=== PATIENT | female | born 1970 | race Caucasian/White ===

== ENCOUNTER 2023-03-07 01:38 | Emergency (ER) | payer BC ==
[2023-03-07] MEDS ORDERED: Sodium Chloride 0.9% 1000 ML 1,000 ML IV STA ×2 (01:41→03:50)
--- NOTE | 2023-03-07 01:54 | ERPHSYRPT ---
- History of Present Illness Time Seen by Provider: 03/07/23 01:45 Source: patient, EMS Exam Limitations: no limitations Physician History: Pt walked outside and had syncopal episode, then was found to have LBP on scene by EMS, which has responded to bolus of fluids. Pt reported that her BP had been high earlier so she took additional meds this afternoon. Pt has not had cardiac or prior hx of this. No hx of trauma and no current pain or symptoms. Full ROM all ext without pain. Chest clear Ht reg without M. Abd soft and nontender without mass or peritoneal signs. Neuro exam normal, mental status normal no suicidal or homicidal ideations. Pt states that she had some alcohol drinks this pm prior to her syncope. discussed risks/benefits of testing CBC, CMP, Lactate, EKG, Trop, Ua, Urine triage, HCG, Acetomenophen, Etoh, and delfina levels and she wishes to proceed. Later results discussed with pt. EMS served as independent source to confirm Hx. Witnessed: by friend Prior Episodes: single episode today Timing/Duration: today, resolved prior to arrival Precipitating Factors: unknown Context: standing Loss of Consciousness: brief (seconds) Charcter of event(s): became unresponsive Allergies/Adverse Reactions: Penicillins Allergy (Verified 03/07/23 04:18) Hives Home Medications: hydroCHLOROthiazide [Hydrochlorothiazide] 12.5 mg PO DAILY 03/07/23 [History] - Past Medical History Pertinent Past Medical History: Yes Neurological History: No Pertinent History ENT History: No Pertinent History Cardiac History: Hypertension Respiratory History: No Pertinent History Endocrine Medical History: No Pertinent History Musculoskeletal History: Arthritis, Osteoarthritis GI Medical History: No Pertinent History History: No Pertinent History Psycho-Social History: Depression - Past Surgical History Past Surgical History: No - Review of Systems Constitutional: No Fever, No Chills Eyes: No Symptoms Ears, Nose, & Throat: No Symptoms Respiratory: No Cough, No Dyspnea Cardiac: No Chest Pain, No Edema, No Syncope Abdominal/Gastrointestinal: No Abdominal Pain, No Nausea, No Vomiting, No Diarrhea Genitourinary Symptoms: No Dysuria Musculoskeletal: No Back Pain, No Neck Pain Skin: No Rash Neurological: Other (resolved syncopal episode), No Dizziness, No Focal Weakness, No Sensory Changes Psychological: No Symptoms Endocrine: No Symptoms Hematologic/Lymphatic: No Symptoms Immunological/Allergic: No Symptoms All Other Systems: Reviewed and Negative Physical Exam - Nursing Vital Signs Nursing Vital Signs: Initial Vital Signs Temperature 97.7 F 03/07/23 01:40 Pulse Rate 83 03/07/23 01:40 Respiratory Rate 16 03/07/23 01:40 Blood Pressure 81/53 03/07/23 01:40 O2 Sat by Pulse Oximetry 100 03/07/23 01:40 Pain Scale Pain Intensity 0 - [place] Coma Scale Best Eye Response ([place]): (4) open spontaneously Best Verbal Response ([place]): (5) oriented Best Motor Response ([place]): (6) obeys commands [place] Total: 15 - Physical Exam General Appearance: no apparent distress, alert Eye Exam: bilateral eye: normal inspection, PERRL, EOMI Ears, Nose, Throat Exam: normal ENT inspection, pharynx normal, moist mucous membranes Neck Exam: normal inspection, non-tender, supple, full range of motion Respiratory: normal breath sounds, lungs clear, No chest tenderness, No respiratory distress Cardiovascular: regular rate/rhythm, capillary refill <2 sec, No murmur, No pulse deficit Gastrointestinal: soft, No tenderness, No distention, No mass Pelvic Exam: deferred Rectal Exam: deferred Back Exam: normal inspection, normal range of motion, No CVA tenderness, No vertebral tenderness Extremity Exam: normal inspection, normal range of motion, pelvis stable, No tenderness Peripheral Pulses: carotid (R): 2+, carotid (L): 2+, femoral (R): 2+, femoral (L): 2+, dorsalis-pedis (R): 2+, dorsalis-pedis (L): 2+ Mental Status: alert, 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 x 3, 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 Exam: normal speech, PERRL, No facial droop Coordination/Gait: normal finger to nose Motor/Sensory: no motor deficit, no sensory deficit, no pronator drift DTR: bicep (R): 2+, bicep (L): 2+, tricep (R): 2+, tricep (L): 2+, knee (R): 2+, knee (L): 2+, ankle (R): 2+, ankle (L): 2+ Skin Exam: normal color, warm, dry, No rash SpO2 Interpretation: normal SpO2: 100 O2 Delivery: Room Air - Course Nursing assessment & vital signs reviewed: Yes EKG Interpreted by Me: Sinus Rhythm, NORMAL AXIS, NORMAL INTERVALS, NORMAL QRS, NORMAL ST-T Ordered Tests: Active Orders 24 hr Category Date Time Status Clean Catch Urine Specimen STAT Care 03/07/23 01:41 Active EKG-ER Only STAT Care 03/07/23 01:41 Active IV Insertion STAT Care 03/07/23 01:41 Active Telemetry q4h Care 03/07/23 02:23 Active Telemetry q4h Care 03/07/23 04:47 Active ACETAMINOPHEN Stat Lab 03/07/23 02:04 Completed CBC W DIFF Stat Lab 03/07/23 02:04 Completed CMP Stat Lab 03/07/23 02:04 Completed D-DIMER QUANTITATIVE Stat Lab 03/07/23 02:00 Completed ETHYL ALCOHOL Stat Lab 03/07/23 02:00 Completed HCG QUALITATIVE, SERUM Stat Lab 03/07/23 02:04 Completed K [Potassium] Stat Lab 03/07/23 05:01 Completed Lactic Acid Stat Lab 03/07/23 02:30 Completed Lactic Acid Stat Lab 03/07/23 04:33 Completed SALICYLATE Stat Lab 03/07/23 02:04 Completed TROPONIN Q4H Lab 03/07/23 02:04 Completed TROPONIN Q4H Lab 03/07/23 05:01 Completed TROPONIN Q4H Lab 03/07/23 09:45 Ordered UA W/RFX UR CULTURE Stat Lab 03/07/23 Ordered Urine Triage Profile Stat Lab 03/07/23 Ordered Medication Summary Generic Name Dose Route Start Last Admin Trade Name Freq PRN Reason Stop Dose Admin Potassium Chloride 20 meq in 100 mls @ 50 mls/hr 03/07/23 04:46 03/07/23 05:04 Potassium Chloride 20 Meq In Water 100ml IV 03/07/23 06:45 50 mls/hr STAT ONE Administration Discontinued Medications Generic Name Dose Route Start Last Admin Trade Name Freq PRN Reason Stop Dose Admin Sodium Chloride 1,000 mls @ 999 mls/hr 03/07/23 01:41 03/07/23 03:15 Sodium Chloride 0.9% 1000 Ml IV 03/07/23 02:41 Infused .Q1H1M STA Infusion Sodium Chloride Confirm 03/07/23 02:14 Sodium Chloride 0.9% 1000 Ml Administered 03/07/23 02:15 Dose 1,000 mls @ ud .ROUTE .STK-MED ONE Potassium Chloride 20 meq in 100 mls @ 50 mls/hr 03/07/23 02:23 03/07/23 02:29 Potassium Chloride 20 Meq In Water 100ml IV 03/07/23 04:22 50 mls/hr STAT ONE Administration Potassium Chloride Confirm 03/07/23 02:27 Potassium Chloride 20 Meq In Water 100ml Administered 03/07/23 02:28 Dose 100 mls @ ud IV .STK-MED ONE Sodium Chloride Confirm 03/07/23 03:27 Sodium Chloride 0.9% 1000 Ml Administered 03/07/23 03:28 Dose 1,000 mls @ ud .ROUTE .STK-MED ONE Sodium Chloride 1,000 mls @ 999 mls/hr 03/07/23 03:50 03/07/23 04:19 Sodium Chloride 0.9% 1000 Ml IV 03/07/23 04:50 999 mls/hr .Q1H1M STA Administration Sodium Chloride Confirm 03/07/23 04:19 Sodium Chloride 0.9% 1000 Ml Administered 03/07/23 04:20 Dose 1,000 mls @ ud .ROUTE .STK-MED ONE Potassium Chloride Confirm 03/07/23 04:56 Potassium Chloride 20 Meq In Water 100ml Administered 03/07/23 04:57 Dose 100 mls @ ud IV .STK-MED ONE Potassium Bicarbonate 25 meq 03/07/23 02:23 03/07/23 02:29 Potassium Bicarbonate 25 Meq Tab PO 03/07/23 02:24 25 meq STAT ONE Administration Potassium Bicarbonate Confirm 03/07/23 02:27 Potassium Bicarbonate 25 Meq Tab Administered 03/07/23 02:28 Dose 25 meq .ROUTE .STK-MED ONE Lab/Rad Data: Laboratory Result Diagrams 03/07/23 02:04 03/07/23 05:01 Laboratory Results 03/07/23 03/07/23 03/07/23 Range/Units 05:01 05:01 04:33 WBC (4.0-10.5) x10^3/uL RBC (4.1-5.4) x10^6/uL Hgb (12.0-16.0) g/dL Hct (35-47) % MCV (78-100) fL MCH (26-32) pg MCHC (32-36) g/dL RDW (11.5-14.0) % Plt Count (150-450) x10^3/uL MPV (7.5-11.0) fL Gran % (36.0-66.0) % Immature Gran % (Auto) (0.00-0.4) % Nucleat RBC Rel Count (0.00-0.1) % Eos # (Auto) (0-0.5) x10^3/uL Immature Gran # (Auto) (0.00-0.03) x10^3u/L Absolute Lymphs (auto) (1.0-4.6) x10^3/uL Absolute Monos (auto) (0.0-1.3) x10^3/uL Absolute Nucleated RBC (0.00-0.01) x10^3u/L Lymphocytes % (24.0-44.0) % Monocytes % (0.0-12.0) % Eosinophils % (0.00-5.0) % Basophils % (0.0-0.4) % Absolute Granulocytes (1.4-6.9) x10^3/uL Basophils # (0-0.4) x10^3/uL D-Dimer (0.0-0.50) mg/L Sodium (137-145) mmol/L Potassium 3.1 L (3.5-5.1) mmol/L Chloride (98-107) mmol/L Carbon Dioxide (22-30) mmol/L Anion Gap (5-15) MEQ/L BUN (7-17) mg/dL Creatinine (0.52-1.04) mg/dL Estimated GFR ML/MIN Glucose (74-106) mg/dL Lactic Acid 3.5 H (0.4-2.0) Calcium (8.4-10.2) mg/dL Total Bilirubin (0.2-1.3) mg/dL AST (14-36) U/L ALT (0-35) U/L Alkaline Phosphatase (38-126) U/L Troponin I < 0.012 (0.000-0.034) ng/mL Serum Total Protein (6.3-8.2) g/dL Albumin (3.5-5.0) g/dL Serum HCG, Qual (NEGATIVE) Salicylates (2-20) mg/dL Acetaminophen (10-30) ug/ml Ethyl Alcohol (0-10) mg/dL 03/07/23 03/07/23 03/07/23 Range/Units 02:30 02:04 02:04 WBC (4.0-10.5) x10^3/uL RBC (4.1-5.4) x10^6/uL Hgb (12.0-16.0) g/dL Hct (35-47) % MCV (78-100) fL MCH (26-32) pg MCHC (32-36) g/dL RDW (11.5-14.0) % Plt Count (150-450) x10^3/uL MPV (7.5-11.0) fL Gran % (36.0-66.0) % Immature Gran % (Auto) (0.00-0.4) % Nucleat RBC Rel Count (0.00-0.1) % Eos # (Auto) (0-0.5) x10^3/uL Immature Gran # (Auto) (0.00-0.03) x10^3u/L Absolute Lymphs (auto) (1.0-4.6) x10^3/uL Absolute Monos (auto) (0.0-1.3) x10^3/uL Absolute Nucleated RBC (0.00-0.01) x10^3u/L Lymphocytes % (24.0-44.0) % Monocytes % (0.0-12.0) % Eosinophils % (0.00-5.0) % Basophils % (0.0-0.4) % Absolute Granulocytes (1.4-6.9) x10^3/uL Basophils # (0-0.4) x10^3/uL D-Dimer (0.0-0.50) mg/L Sodium (137-145) mmol/L Potassium (3.5-5.1) mmol/L Chloride (98-107) mmol/L Carbon Dioxide (22-30) mmol/L Anion Gap (5-15) MEQ/L BUN (7-17) mg/dL Creatinine (0.52-1.04) mg/dL Estimated GFR ML/MIN Glucose (74-106) mg/dL Lactic Acid 4.3 H (0.4-2.0) Calcium (8.4-10.2) mg/dL Total Bilirubin (0.2-1.3) mg/dL AST (14-36) U/L ALT (0-35) U/L Alkaline Phosphatase (38-126) U/L Troponin I (0.000-0.034) ng/mL Serum Total Protein (6.3-8.2) g/dL Albumin (3.5-5.0) g/dL Serum HCG, Qual (NEGATIVE) Salicylates < 1.0 L (2-20) mg/dL Acetaminophen < 10 L (10-30) ug/ml Ethyl Alcohol (0-10) mg/dL 03/07/23 03/07/23 03/07/23 Range/Units 02:04 02:04 02:04 WBC (4.0-10.5) x10^3/uL RBC (4.1-5.4) x10^6/uL Hgb (12.0-16.0) g/dL Hct (35-47) % MCV (78-100) fL MCH (26-32) pg MCHC (32-36) g/dL RDW (11.5-14.0) % Plt Count (150-450) x10^3/uL MPV (7.5-11.0) fL Gran % (36.0-66.0) % Immature Gran % (Auto) (0.00-0.4) % Nucleat RBC Rel Count (0.00-0.1) % Eos # (Auto) (0-0.5) x10^3/uL Immature Gran # (Auto) (0.00-0.03) x10^3u/L Absolute Lymphs (auto) (1.0-4.6) x10^3/uL Absolute Monos (auto) (0.0-1.3) x10^3/uL Absolute Nucleated RBC (0.00-0.01) x10^3u/L Lymphocytes % (24.0-44.0) % Monocytes % (0.0-12.0) % Eosinophils % (0.00-5.0) % Basophils % (0.0-0.4) % Absolute Granulocytes (1.4-6.9) x10^3/uL Basophils # (0-0.4) x10^3/uL D-Dimer (0.0-0.50) mg/L Sodium 136 L (137-145) mmol/L Potassium 2.6 L* (3.5-5.1) mmol/L Chloride 101 (98-107) mmol/L Carbon Dioxide 20 L (22-30) mmol/L Anion Gap 18.0 H (5-15) MEQ/L BUN 12 (7-17) mg/dL Creatinine 0.80 (0.52-1.04) mg/dL Estimated GFR > 60.0 ML/MIN Glucose 104 (74-106) mg/dL Lactic Acid (0.4-2.0) Calcium 7.9 L (8.4-10.2) mg/dL Total Bilirubin 0.50 (0.2-1.3) mg/dL AST 23 (14-36) U/L ALT 25 (0-35) U/L Alkaline Phosphatase 45 (38-126) U/L Troponin I < 0.012 (0.000-0.034) ng/mL Serum Total Protein 6.5 (6.3-8.2) g/dL Albumin 3.8 (3.5-5.0) g/dL Serum HCG, Qual NEGATIVE (NEGATIVE) Salicylates (2-20) mg/dL Acetaminophen (10-30) ug/ml Ethyl Alcohol (0-10) mg/dL 03/07/23 03/07/23 03/07/23 Range/Units 02:04 02:00 02:00 WBC 5.3 (4.0-10.5) x10^3/uL RBC 3.36 L (4.1-5.4) x10^6/uL Hgb 11.3 L (12.0-16.0) g/dL Hct 33.9 L (35-47) % MCV 100.9 H (78-100) fL MCH 33.6 H (26-32) pg MCHC 33.3 (32-36) g/dL RDW 13.9 (11.5-14.0) % Plt Count 271 (150-450) x10^3/uL MPV 8.7 (7.5-11.0) fL Gran % 39.4 (36.0-66.0) % Immature Gran % (Auto) 0.6 H (0.00-0.4) % Nucleat RBC Rel Count 0.0 (0.00-0.1) % Eos # (Auto) 0.02 (0-0.5) x10^3/uL Immature Gran # (Auto) 0.03 (0.00-0.03) x10^3u/L Absolute Lymphs (auto) 2.40 (1.0-4.6) x10^3/uL Absolute Monos (auto) 0.73 (0.0-1.3) x10^3/uL Absolute Nucleated RBC 0.00 (0.00-0.01) x10^3u/L Lymphocytes % 45.1 H (24.0-44.0) % Monocytes % 13.7 H (0.0-12.0) % Eosinophils % 0.4 (0.00-5.0) % Basophils % 0.8 (0.0-0.4) % Absolute Granulocytes 2.10 (1.4-6.9) x10^3/uL Basophils # 0.04 (0-0.4) x10^3/uL D-Dimer < 0.19 (0.0-0.50) mg/L Sodium (137-145) mmol/L Potassium (3.5-5.1) mmol/L Chloride (98-107) mmol/L Carbon Dioxide (22-30) mmol/L Anion Gap (5-15) MEQ/L BUN (7-17) mg/dL Creatinine (0.52-1.04) mg/dL Estimated GFR ML/MIN Glucose (74-106) mg/dL Lactic Acid (0.4-2.0) Calcium (8.4-10.2) mg/dL Total Bilirubin (0.2-1.3) mg/dL AST (14-36) U/L ALT (0-35) U/L Alkaline Phosphatase (38-126) U/L Troponin I (0.000-0.034) ng/mL Serum Total Protein (6.3-8.2) g/dL Albumin (3.5-5.0) g/dL Serum HCG, Qual (NEGATIVE) Salicylates (2-20) mg/dL Acetaminophen (10-30) ug/ml Ethyl Alcohol 111 H (0-10) mg/dL - Progress Progress: improved, re-examined Progress Note: 07/02/23 02:28 pt advised of low K and she agrees to Tx with [place] and Kateryna diaz after discussion of risks/benefits. 03/07/23 06:12 pt has not had any recurrence of symptoms and her blood pressure is now near where her normal is in the 90s systolic. I discussed with the pt and family the limitations of the testing / evaluation performed tonight in this setting and that even though it appears that overmedication combined with dehydration and low potassium with some etoh on board are likely contributors, we cannot be sure of the exact cause of her syncopal episode. They understand and wish to choose outpt f/u with PMD rather than further testing in ER or hosp obs /admission at this time and with normal mental status have the decisional capacity to make that choice. Counseled pt/family regarding: lab results, diagnosis, need for follow-up Medical Desision Making - Independent Historian Additional History obtained from: Mri Supervisor/EMT - Diagnostic Testing Diagnostic test were ordered, analyzed, and reviewed by me: Yes - Risk of complications The pt has a mod risk of morbidity or mortality based on: Need for prescription drug management The pt has a high risk of morbidity or mortality based on: Decision regarding hospitilization or escalation of hosp level of care - Departure Departure Disposition: Home Clinical Impression: resolved syncopal episode, Hypokalemia, overmedication Condition: Good Critical Care Time: No Instructions: Syncope (Fainting) (DC), Hypokalemia (DC), Dehydration, Adult (DC) Additional Instructions: Although there are factors such as dehydration and too much blood pressure medicine that likely played a role in your fainting spell, we cannot be certain that additional conditions may still be developing or present, so that following up with your DrDiamante to consider further work up, and adjustment of your medications is advised as well as rechecking the low potassium and high lactate level. Drink plenty of fluids and take your potassium and eat foods with potassium such as bananas. Return meantime if any further symptoms or concerns.
[2023-03-07 02:09] LABS: BASOPHIL % 0.8 % (0.0-0.4); Basophil (Absolute #) 0.04 x10^3/uL (0-0.4); Eosinophil % 0.4 % (0.00-5.0); Eosinophil (Absolute #) 0.02 x10^3/uL (0-0.5); Hematocrit 33.9 % (35-47); Hemoglobin 11.3 g/dL (12.0-16.0); IMMATURE GRAN # 0.03 x10^3u/L (0.00-0.03); IMMATURE GRAN % 0.6 % (0.00-0.4); Lymphocytes % 45.1 % (24.0-44.0); Mean Cell Volume 100.9 fL (78-100); Mean Corpuscular Hemoglobin 33.6 pg (26-32); Mean Corpuscular Hgb Concent. 33.3 g/dL (32-36); Mean Platelet Volume 8.7 fL (7.5-11.0); Monocyte (Absolute #) 0.73 x10^3/uL (0.0-1.3); Monocytes % 13.7 % (0.0-12.0); Neutrophil % 39.4 % (36.0-66.0); Platelet Count 271 x10^3/uL (150-450); Red Blood Count 3.36 x10^6/uL (4.1-5.4); Red Cell Distribution Width 13.9 % (11.5-14.0); White Blood Count 5.3 x10^3/uL (4.0-10.5)
[2023-03-07] MEDS ORDERED: Sodium Chloride 0.9% 1000 ML 1,000 ML ONE ×3 (02:14→04:19)
[2023-03-07 02:19] LABS: ALBUMIN 3.8 g/dL (3.5-5.0); ALKALINE PHOSPHATASE 45 U/L (38-126); BLOOD UREA NITROGEN 12 mg/dL (7-17); CHLORIDE 101 mmol/L (98-107); Calcium 7.9 mg/dL (8.4-10.2); Carbon Dioxide 20 mmol/L (22-30); EST GLOMERULAR FILTRATION RATE > 60.0 ML/MIN; Glucose 104 mg/dL (74-106); SGOT/AST 23 U/L (14-36); SGPT/ALT 25 U/L (0-35); SODIUM 136 mmol/L (137-145); Total Protein 6.5 g/dL (6.3-8.2)
[2023-03-07 02:22] LABS: Potassium 2.6 mmol/L (3.5-5.1)
[2023-03-07] MEDS ORDERED: POTASSIUM CHLORIDE 20 mEq IN WATER 100ML 20 MEQ/100 ML BAG IV ONE ×2 (02:23→04:46)
[2023-03-07] MEDS ORDERED: K-LYTE PO ONE (02:23)
[2023-03-07 02:25] LABS: HCG SERUM TEST NEGATIVE (NEGATIVE)
[2023-03-07] MEDS ORDERED: POTASSIUM CHLORIDE 20 mEq IN WATER 100ML 100 ML IV ONE ×2 (02:27→04:56)
[2023-03-07] MEDS ORDERED: K-LYTE ONE (02:27)
[2023-03-07 07:37] VITALS: BP 98/61; PULSE 86; O2SAT 99
== END 2023-03-07 07:46 | disposition home or self-care (01) ==
LOC: ED 01:38
DX: T50.2X1A Poisoning by carbonic-anhydrase inhibitors, benzothiadiazides and other diuretics, accidental (unintentional), initial encounter (principal); R55 Syncope and collapse; E87.6 Hypokalemia; I10 Essential (primary) hypertension; Z79.899 Other long term (current) drug therapy
CPT/HCPCS: 36000; 36415; 80053; 80143; 80179; 82077; 83605; 84132; 84484; 84703; 85025; 85379; 93005; 96360; 96365; 96366; 99284; J3480; A9270-GY